=== PATIENT | male | born 1995 | race Caucasian/White ===

== ENCOUNTER 2023-08-01 12:15 | Outpatient (REF) | payer BC, SELFPAY ==
[2023-08-01 13:16] LABS: MANUAL DIFF FLAG NO
[2023-08-01 13:30] LABS: Basophils Percent Auto 0.5 % (0-2); Eosinophils Absolute Auto 0.2 X10*3/uL (0.0-0.4); Eosinophils Percent Auto 2.5 % (0-4); Hematocrit 45.7 % (42.0-52.0); Hemoglobin 14.9 g/dl (14.0-18.0); Imm Gran Abs Auto 0.03 X10*3/uL (0.00-0.03); Imm Gran Pct Auto 0.4 % (0.0-0.4); Lymphocytes Absolute Auto 1.7 X10*3/uL (1.2-4.9); Lymphocytes Percent Auto 20.5 % (20-40); Mean Corpuscular HGB Conc 32.6 g/dl (31.0-36.0); Mean Corpuscular Hemoglobin 29.1 pg (27.0-33.0); Mean Corpuscular Volume 89.3 fL (80.0-98.0); Mean Platelet Volume 9.4 fL (9.4-12.4); Monocytes Absolute Auto 0.6 X10*3/uL (0.1-1.2); Monocytes Percent Auto 7.4 % (2-11); Neutrophils Absolute Auto 5.8 x10*3/uL (2.0-8.3); Neutrophils Percent Auto 68.7 % (45-73); Platelet Count 320 X10*3/uL (160-400); Red Blood Count 5.12 X10*6/uL (4.60-5.80); White Blood Count 8.4 X10*3/uL (4.8-10.8)
[2023-08-01 14:08] LABS: Erythrocyte Sedimentation Rate 13 MM/HR (0-15)
[2023-08-01 14:09] LABS: Alanine Aminotransferase 22 U/L (0-40); Albumin Level 4.4 g/dL (3.5-5.0); Alkaline Phosphatase 85 U/L (39-117); Aspartate Amino Transferase 16 U/L (5-37); Bilirubin Direct 0.1 mg/dL (0.0-0.5); Bilirubin Total 0.4 mg/dL (0.0-1.0); C Reactive Protein 0.63 mg/dL (< or = 0.50); Ferritin 59 ng/mL (20-250); Iron 58 mcg/dL (45-160); Lipase 23 U/L (8-78); Percent Iron Saturation 21 % (15-50); Total Iron Binding Capacity 282 mcg/dL (228-428); Total Protein 7.5 g/dL (6.5-8.0); Unsaturated Iron Binding 224 ug/dL
== END 2023-08-01 12:16 | disposition home or self-care (01) ==
LOC: HO.10HDL 12:15
PROVIDERS: Visit Provider Internal Medicine Gastroenterology
DX: K50.10 Crohn's disease of large intestine without complications (principal)
CPT/HCPCS: 36415; 80076; 82728; 83540; 83690; 85025; 85652; 86140

== ENCOUNTER 2023-08-31 09:19 | Day surgery (SDC) | payer BC, SELFPAY ==
[2023-08-29 15:05] VITALS: BMI 38.8
--- NOTE | 2023-08-30 09:43 | HO.ANESPROP2 ---
Documented by User: Jeni Borden NP 08/30/23 09:43 HPI - Anesthesia Eval Consult details Narrative: 28yo M for Colonoscopy [facility] Past Medical History Medical History (Updated 08/31/23 @ 09:43 by Nataly Davis RN) Tachycardia Asthma Umbilical hernia Anxiety Crohn's disease Surgical History Surgical History (Updated 08/31/23 @ 09:38 by Nataly Davis RN) [place] teeth extracted Hx of colonoscopy Social History Social History (Updated 08/29/23 @ 15:09 by Elvira Mauro RN) Patient Tobacco Use Status: Never used Tobacco Meds Allergies Allergy/AdvReac Type Severity Reaction Status Date / Time No Known Allergies Allergy Verified 08/30/23 09:45 Home Medications ?Medication ?Instructions ?Recorded ?Confirmed ?Last Taken ?Type Vitamin D3 08/29/23 Unknown History bupropion HCl 200 mg tablet,12 hr 200 mg PO QAM 08/29/23 08/29/23 Unknown History sustained-release escitalopram oxalate 10 mg tablet 10 mg PO DAILY 08/29/23 08/29/23 Unknown History ferrous sulfate 325 mg (65 mg 325 mg PO 3XW 08/29/23 08/29/23 Unknown History iron) tablet ustekinumab 90 mg/mL subcutaneous 90 mg subcut Q8W 08/29/23 08/29/23 Unknown History syringe (Stelara) vitamin B complex 08/29/23 08/29/23 Unknown History Exam Height,Weight and Vital Signs: Height 5 ft 7 in Weight 112.264 kg Assessment and Plan Assessment Anesthesia Assessment: Chart Reviewed Documented by User: Devin Lee MD 08/31/23 09:49 [facility] Past Medical History Medical History (Updated 08/31/23 @ 09:43 by Nataly Davis RN) Tachycardia Asthma Umbilical hernia Anxiety Crohn's disease Family History Family history of problems with anesthesia: No Surgical History Surgical History (Updated 08/31/23 @ 09:38 by Nataly Davis RN) [place] teeth extracted Hx of colonoscopy History of Problems with Anesthesia: No Social History Social History (Updated 08/29/23 @ 15:09 by Elvira Mauro RN) Patient Tobacco Use Status: Never used Tobacco Meds Allergies Allergy/AdvReac Type Severity Reaction Status Date / Time No Known Allergies Allergy Verified 08/30/23 09:45 Home Medications ?Medication ?Instructions ?Recorded ?Confirmed ?Last Taken ?Type Vitamin D3 08/29/23 Unknown History bupropion HCl 200 mg tablet,12 hr 200 mg PO QAM 08/29/23 08/29/23 Unknown History sustained-release escitalopram oxalate 10 mg tablet 10 mg PO DAILY 08/29/23 08/29/23 Unknown History ferrous sulfate 325 mg (65 mg 325 mg PO 3XW 08/29/23 08/29/23 Unknown History iron) tablet ustekinumab 90 mg/mL subcutaneous 90 mg subcut Q8W 08/29/23 08/29/23 Unknown History syringe (Stelara) vitamin B complex 08/29/23 08/29/23 Unknown History Exam Airway Mallampati Class: III TM Dist: >3cm Neck ROM: Full Loose/Missing/Broken Teeth: No Heart: rrr Lungs: cta Assessment and Plan Final Anesthetic Review Family History of Problems with Anesthesia: No History of Problems with Anesthesia: No NPO: Yes ASA Class: II Final Preanesthetic Review: No Changes in Pt Med Stat, Meds/Allgs Chart Reviewed, Consent Obtained/Reviewed and Anes Risks/Benef Reviewed Patient Risk: Intermediate Procedure Risk: Intermediate Anesthetic Plan Anesthetic Plan: MAC: and Regional Block Disposition: Standard PACU
[2023-08-31 09:39] VITALS: BMI 36.6
[2023-08-31 09:51] VITALS: BP 136/92; PULSE 113; RESP 16; TEMP 36.9; O2SAT 96
[2023-08-31] MEDS: Lactated Ringers 1,000 ML 100 ML IVCONT (10:00)
--- NOTE | 2023-08-31 10:24 | MHC.SHP ---
Pre-Procedural Eval Section A - 24 Hr Update-Section A only Date of Service: 08/31/23 The patient is an INPATIENT: No Changes since office visit: No Cold of Flu in the past 2 weeks, No New Medical Problems, No Changes in Medication and No Patient answered all questions The patient has been examined within 24 hours of the surgical procedure. The History & Physical has been completed within 30 days and I have reviewed it.: Yes Section B - Complete if H&P > 30 days Chief Complaint: retal bleeding,crohn's disease Allergies: Allergies Allergy/AdvReac Type Severity Reaction Status Date / Time No Known Allergies Allergy Verified 08/30/23 09:45 Plan I have reviewed the history and physical and performed a pertinent physical examination on my patient. No changes have occurred unless specified. Time Spent With Patient Time: Total time managing care of this patient today ____ minutes.
[2023-08-31 10:57] VITALS: BP 107/68; PULSE 102; RESP 17; TEMP 37.2; O2SAT 98
[2023-08-31 11:13] VITALS: BP 121/82; PULSE 90; RESP 18; TEMP 36.6; O2SAT 98
--- NOTE | 2023-08-31 11:46 | OP_ITS ---
DATE OF SERVICE: 08/31/2023 SURGEON: Jonathan Bass MD INDICATIONS: Crohn disease and rectal bleeding. PREOPERATIVE DIAGNOSIS: POSTOPERATIVE DIAGNOSIS: PROCEDURE PERFORMED: Colonoscopy to the terminal ileum with biopsy. ESTIMATED BLOOD LOSS: COMPLICATIONS: ANESTHESIA: Monitored anesthesia care. ASSISTANTS: SPECIMENS: DESCRIPTION OF PROCEDURE: A history and physical was performed. The risks and benefits of the procedure were explained to the patient. Informed consent was obtained. The patient was placed in the left lateral decubitus position. A digital rectal exam was performed and was found to be normal. The Olympus pediatric video colonoscope was introduced into the rectum and advanced to the cecum. The cecum was identified by transillumination, palpation, and identification of the ileocecal valve. Examination was performed. The scope was removed. He tolerated the procedure well and was returned to the recovery area in stable condition. FINDINGS: The terminal ileum was examined and appeared normal. This was biopsied. The visualized colonic mucosa showed changes of healed colitis with pseudopolyp formation and no active inflammation beginning in the cecum and extending to about 50 cm. Biopsies were obtained from throughout the colon. The segment between 50 cm in the rectum appeared endoscopically normal with no inflammatory changes and no pseudo polyps in the rectum from about 0 to 5 or 10 cm. There was evidence of mild active proctitis with inflammation, edema, and loss of vascular pattern. There was no ulceration. The change was patchy. Retroflexed examination showed involvement down to the level of the anal sphincter. Examination of the perianal and perineal area showed no evidence of active Crohn disease. There was some mild reddening of the skin in the gluteal cleft, but this did not appear consistent with active Crohn disease. IMPRESSION: Crohn disease involving the colon. RECOMMENDATION: 1. Follow up the biopsy results. 2. Topical hydrocortisone cream to the gluteal cleft as needed for symptomatic itching or discomfort. MD TUYET Servin/KALYANL / [id number]
== END 2023-08-31 11:40 | disposition home or self-care (01) ==
PROVIDERS: PCP Nurse Practitioner; Visit Provider Internal Medicine Gastroenterology
PROC: 0DJD8ZZ Inspection of Lower Intestinal Tract, Via Natural or Artificial Opening Endoscopic (ICD-10-PCS; CPT 45378; principal; 2023-08-31 12:10)
DX: K50.10 Crohn's disease of large intestine without complications (principal); K62.5 Hemorrhage of anus and rectum; K62.89 Other specified diseases of anus and rectum; F41.9 Anxiety disorder, unspecified; K42.9 Umbilical hernia without obstruction or gangrene; Z79.899 Other long term (current) drug therapy
CPT/HCPCS: 45380; 88305; J2704